=== PATIENT | female | born 1990 | race African-American/Black ===

== ENCOUNTER 2018-01-27 07:51 | Emergency (ER) | payer MEDICARE, OTHER ==
[2018-01-27 08:20] LABS: URINE HCG POC HCG NEGATIVE (Negative)
[2018-01-27] MEDS: IV NORMAL SALINE 1000ML BAG 1,000 ML IV ×2 (08:20→09:45)
[2018-01-27 08:22] LABS: BILIRUBIN,URINE SMALL (NEG); CLARITY,URINE CLEAR; COLOR,URINE YELLOW; GLUCOSE,URINE NEGATIVE (NEG); NITRITE,URINE NEGATIVE (NEG); PH,URINE 5.5; PROTEIN,URINE NEGATIVE (NEG-TRACE)
[2018-01-27] MEDS: ONDANSETRON PF 4 MG/2 ML VIAL. IV (08:22)
[2018-01-27 08:26] LABS: BACTERIA,URINE 0 /HPF (0-FEW); RBC,URINE RARE /HPF (0-2); SQUAMOUS EPITHELIAL CELL,UR MANY /LPF; WBC,URINE RARE /HPF (0-4)
[2018-01-27 08:34] LABS: ADD MAN DIFF? NO
[2018-01-27] MEDS: fentaNYL PF VIAL 100 MCG/2 ML VIAL IV (08:34)
[2018-01-27 08:36] LABS: BASO % 1 % (0-3); EOS % 1 % (0-3); HEMATOCRIT 42.9 % (36.0-47.0); HEMOGLOBIN 14.6 g/dL (12.0-15.5); LYMPH # 1.2 x10^3/uL (1.0-4.8); LYMPH % 43 % (24-48); MEAN CORPUSCULAR HEMOGLOBIN 30 pg (25-35); MEAN CORPUSCULAR HGB CONC 34 g/dL (31-37); MEAN CORPUSCULAR VOLUME 88 fL (79-100); MONO # 0.2 x10^3/uL (0.0-1.1); MONO % 7 % (0-9); NEUT # 1.3 x10^3uL (1.8-7.7); NEUT % 48 % (31-73); PLATELET COUNT 187 x10^3/uL (140-400); RED BLOOD COUNT 4.85 x10^6/uL (3.50-5.40); RED CELL DISTRIBUTION WIDTH 14.2 % (11.5-14.5); WHITE BLOOD COUNT 2.7 x10^3/uL (4.0-11.0)
[2018-01-27 08:48] LABS: ANION GAP 9 (6-14); BLOOD UREA NITROGEN 13 mg/dL (7-20); BUN/CREATININE RATIO 19 (6-20); CALCIUM 9.1 mg/dL (8.5-10.1); CARBON DIOXIDE 24 mmol/L (21-32); CHLORIDE 107 mmol/L (98-107); CREATININE 0.7 mg/dL (0.6-1.0); GFR 123.4; GLUCOSE 86 mg/dL (70-99); POTASSIUM 3.6 mmol/L (3.5-5.1); SODIUM 140 mmol/L (136-145)
[2018-01-27 08:58] LABS: ALBUMIN 3.7 g/dL (3.4-5.0); ALK PHOS 63 U/L (46-116); ALT (SGPT) 25 U/L (14-59); AST (SGOT) 21 U/L (15-37); LIPASE 89 U/L (73-393); TOTAL BILIRUBIN 0.6 mg/dL (0.2-1.0); TOTAL PROTEIN 7.3 g/dL (6.4-8.2)
[2018-01-27] MEDS: IOHEXOL 300 MG/ML 100ML VIAL. IV (09:35)
[2018-01-27] MEDS ORDERED: CONTRAST GIVEN MC (09:45)
== END 2018-01-27 10:50 | disposition home or self-care (01) ==
LOC: ER 07:51
DX: R10.32 Left lower quadrant pain (principal); N93.9 Abnormal uterine and vaginal bleeding, unspecified; F17.210 Nicotine dependence, cigarettes, uncomplicated; Z98.51 Tubal ligation status; Z98.890 Other specified postprocedural states; Z88.6 Allergy status to analgesic agent
CPT/HCPCS: 36415; 74177; 80053; 81001; 81025; 83690; 85025; 96361; 96374; 96375; 99285-25; J2405; J3010; J7030; Q9967

== ENCOUNTER 2019-09-19 19:20 | Emergency (ER) | payer MEDICAID, MEDICARE, OTHER ==
[~2019-09-19] VITALS: Ht 144.8 cm; Wt 54.4 kg
[2019-09-19 20:11] LABS: BILIRUBIN,URINE SMALL (NEG); CLARITY,URINE CLOUDY; NITRITE,URINE NEGATIVE (NEG); PH,URINE 5.5; PROTEIN,URINE 30 mg/dL (NEG-TRACE); UROBILINOGEN,URINE 0.2 mg/dL (0.2 mg/dL)
[2019-09-19 20:16] LABS: COLOR,URINE DK YELLOW
[2019-09-19 20:20] LABS: BACTERIA,URINE MODERATE /HPF (0-FEW); RBC,URINE 0 /HPF (0-2); SQUAMOUS EPITHELIAL CELL,UR MANY /LPF
[2019-09-19 20:21] VITALS: BP 121/79
[2019-09-19 20:44] LABS: BASO % 0 % (0-3); EOS % 0 % (0-3); HEMOGLOBIN 15.3 g/dL (12.0-15.5); LYMPH # 0.4 x10^3/uL (1.0-4.8); LYMPH % 5 % (24-48); MEAN CORPUSCULAR HEMOGLOBIN 29 pg (25-35); MEAN CORPUSCULAR HGB CONC 33 g/dL (31-37); MEAN CORPUSCULAR VOLUME 88 fL (79-100); MONO # 0.2 x10^3/uL (0.0-1.1); MONO % 3 % (0-9); NEUT # 6.9 x10^3/uL (1.8-7.7); NEUT % 92 % (31-73); PLATELET COUNT 206 x10^3/uL (140-400); RED BLOOD COUNT 5.23 x10^6/uL (3.50-5.40); RED CELL DISTRIBUTION WIDTH 14.2 % (11.5-14.5); WHITE BLOOD COUNT 7.5 x10^3/uL (4.0-11.0)
[2019-09-19 20:52] LABS: CALCIUM 9.2 mg/dL (8.5-10.1); CREATININE 0.7 mg/dL (0.6-1.0); GFR 121.5; POTASSIUM 3.9 mmol/L (3.5-5.1)
[2019-09-19 20:57] LABS: ALBUMIN 4.2 g/dL (3.4-5.0); ALBUMIN/GLOBULIN RATIO 0.9 (1.0-1.7); TOTAL BILIRUBIN 0.7 mg/dL (0.2-1.0); TOTAL PROTEIN 8.7 g/dL (6.4-8.2)
[2019-09-19 20:59] LABS: % EOS 1 % (0-5); % LYMPHS 5 % (24-48); % MONOS 3 % (0-10); % SEGS 91 % (35-66); PLT ESTIMATE ADEQUATE (ADEQUATE); TOXIC VACUOLATION SLIGHT
[2019-09-19 21:51] LABS: INFLUENZA A PATIENT NEGATIVE (NEGATIVE); INFLUENZA B PATIENT NEGATIVE (NEGATIVE)
--- NOTE | 2019-09-19 22:13 | PHYS DOC ---
Past Medical History Past Medical History: Other Additional Past Medical Histor: PREECLAMPSIA Past Surgical History: , Other Additional Past Surgical Histo: tubal ligation Alcohol Use: None Drug Use: None Adult General Chief Complaint Chief Complaint: ABDOMINAL PAIN HPI HPI 29-year-old female presents to the emergency Department complaints of nausea, vomiting, abdominal pain. She states is been ongoing for 5-6 hours. States it started this morning. She denies any fever. Patient describes generalized abdominal pain. The makes her symptoms worse, nothing makes her symptoms better. She states she is unable to keep anything down. Her vital signs however reveals she is afebrile, normal sinus rhythm, normotensive. Review of Systems Review of Systems Constitutional: Denies fever or chills [] HENT: Denies nasal congestion or sore throat [] Respiratory: Denies cough or shortness of breath [] Cardiovascular: No additional information not addressed in HPI [] GI: generalized abdominal pain, nausea, vomiting, no bloody stools or diarrhea [] : Denies dysuria or hematuria [] Musculoskeletal: Denies back pain or joint pain [] Neurologic: Denies headache, focal weakness or sensory changes [] All other systems were reviewed and found to be within normal limits, except as documented in this note. Current Medications Current Medications Current Medications Medications (Trade) Dose Ordered Sig/Man Start Time Stop Time Status Last Admin Dose Admin Dicyclomine HCl (Bentyl) 10 mg 1X ONCE 09/19/19 22:30 09/19/19 22:31 DC 09/19/19 22:52 10 MG Ondansetron HCl (Zofran) 4 mg 1X ONCE 09/19/19 22:30 09/19/19 22:31 DC 09/19/19 22:51 4 MG Sodium Chloride 1,000 ml @ 1,000 mls/hr 1X ONCE 09/19/19 22:30 09/19/19 23:29 09/19/19 22:43 1,000 MLS/HR Allergies Allergies Allergies Coded Allergies Type Severity Reaction Last Updated Verified aspirin Allergy Severe "throat swelling" 01/27/18 Yes Physical Exam Physical Exam Constitutional: Well developed, well nourished, no acute distress, non-toxic appearance. [] HENT: Normocephalic, atraumatic, bilateral external ears normal, oropharynx moist, no oral exudates, nose normal. [] Eyes: PERRLA, EOMI, conjunctiva normal, no discharge. [] Cardiovascular:Heart rate regular rhythm, no murmur [] Lungs & Thorax: Bilateral breath sounds clear to auscultation [] Abdomen: Bowel sounds normal, soft, no tenderness, no masses, no pulsatile masses. [] Skin: Warm, dry, no erythema, no rash. [] Back: No tenderness, no CVA tenderness. [] Extremities: No tenderness, no edema. [] Neurologic: Alert and oriented X 3, no focal deficits noted. [] Psychologic: Affect normal, judgement normal, mood normal. [] Current Patient Data Vital Signs Vital Signs Date Time Temp Pulse Resp B/P (MAP) Pulse Ox O2 Delivery O2 Flow Rate FiO2 09/19/19 20:21 98.2 91 20 121/79 (93) 98 Room Air 98.2 Lab Values Laboratory Tests Test 09/19/19 19:20 09/19/19 19:59 09/19/19 20:35 09/19/19 21:15 Urine Collection Type Void Urine Color Dk yellow Urine Clarity Cloudy Urine pH 5.5 Urine Specific [place] >=1.030 Urine Protein 30 mg/dL (NEG-TRACE) Urine Glucose (UA) Negative mg/dL (NEG) Urine Ketones (Stick) 40 mg/dL (NEG) Urine Blood Negative (NEG) Urine Nitrite Negative (NEG) Urine Bilirubin Small (NEG) Urine Urobilinogen Dipstick 0.2 mg/dL (0.2 mg/dL) Urine Leukocyte Esterase Negative (NEG) Urine RBC 0 /HPF (0-2) Urine WBC 1-4 /HPF (0-4) Urine Squamous Epithelial Cells Many /LPF Urine Bacteria Moderate /HPF (0-FEW) Urine Mucus Marked /LPF POC Urine HCG, Qualitative Hcg negative (Negative) White Blood Count 7.5 x10^3/uL (4.0-11.0) Red Blood Count 5.23 x10^6/uL (3.50-5.40) Hemoglobin 15.3 g/dL (12.0-15.5) Hematocrit 46.0 % (36.0-47.0) Mean Corpuscular Volume 88 fL (79-100) Mean Corpuscular Hemoglobin 29 pg (25-35) Mean Corpuscular Hemoglobin Concent 33 g/dL (31-37) Red Cell Distribution Width 14.2 % (11.5-14.5) Platelet Count 206 x10^3/uL (140-400) Neutrophils (%) (Auto) 92 % (31-73) H Lymphocytes (%) (Auto) 5 % (24-48) L Monocytes (%) (Auto) 3 % (0-9) Eosinophils (%) (Auto) 0 % (0-3) Basophils (%) (Auto) 0 % (0-3) Neutrophils # (Auto) 6.9 x10^3/uL (1.8-7.7) Lymphocytes # (Auto) 0.4 x10^3/uL (1.0-4.8) L Monocytes # (Auto) 0.2 x10^3/uL (0.0-1.1) Eosinophils # (Auto) 0.0 x10^3/uL (0.0-0.7) Basophils # (Auto) 0.0 x10^3/uL (0.0-0.2) Segmented Neutrophils % 91 % (35-66) H Lymphocytes % 5 % (24-48) L Monocytes % 3 % (0-10) Eosinophils % 1 % (0-5) Toxic Vacuolation Slight Platelet Estimate Adequate (ADEQUATE) Sodium Level 141 mmol/L (136-145) Potassium Level 3.9 mmol/L (3.5-5.1) Chloride Level 102 mmol/L (98-107) Carbon Dioxide Level 27 mmol/L (21-32) Anion Gap 12 (6-14) Blood Urea Nitrogen 15 mg/dL (7-20) Creatinine 0.7 mg/dL (0.6-1.0) Estimated GFR (Cockcroft-Gault) 121.5 BUN/Creatinine Ratio 21 (6-20) H Glucose Level 115 mg/dL (70-99) H Calcium Level 9.2 mg/dL (8.5-10.1) Total Bilirubin 0.7 mg/dL (0.2-1.0) Aspartate Amino Transferase (AST) 16 U/L (15-37) Alanine Aminotransferase (ALT) 15 U/L (14-59) Alkaline Phosphatase 75 U/L (46-116) Total Protein 8.7 g/dL (6.4-8.2) H Albumin 4.2 g/dL (3.4-5.0) Albumin/Globulin Ratio 0.9 (1.0-1.7) L Lipase 76 U/L (73-393) Influenza Type A Antigen Negative (NEGATIVE) Influenza Type B Antigen Negative (NEGATIVE) Laboratory Tests 09/19/19 20:35 Laboratory Tests 09/19/19 20:35 EKG EKG [] Radiology/Procedures Radiology/Procedures [] Course & Med Decision Making Course & Med Decision Making Pertinent Labs and Imaging studies reviewed. (See chart for details) []29-year-old female presents to the emergency Department complaints of nausea, vomiting, abdominal pain. She states is been ongoing for 5-6 hours. States it started this morning. She denies any fever. Patient describes generalized abdominal pain. The makes her symptoms worse, nothing makes her symptoms better. She states she is unable to keep anything down. Her vital signs however reveals she is afebrile, normal sinus rhythm, normotensive. Labs reviewed - no acute abnormalities appreciated UAD negative IVF - zofran/bentyl Plan for dc home with nausea meds/bentyl No evidence of acute infection at this time Dragon Disclaimer Dragon Disclaimer This electronic medical record was generated, in whole or in part, using a voice recognition dictation system. Departure Departure Impression: Primary Impression: Abdominal pain Additional Impressions: Nausea & vomiting Viral syndrome Disposition: 01 HOME, SELF-CARE Condition: IMPROVED Referrals: UNKNOWN PCP NAME (PCP) Patient Instructions: Abdominal Pain (Nonspecific), Viral Syndrome Additional Instructions: Recommend follow up with PCP 3 - 5 days Return to the ER with worsening symptoms, intractable pain, fever, altered mental status Tylenol/Motrin as needed for pain Take new medications as directed Scripts Dicyclomine Hcl (DICYCLOMINE HCL) 10 Mg Capsule 1 CAP PO TID for 5 Days, #15 CAP 11 Refills Prov: DORA MORENO MD 09/19/19 Ondansetron Hcl (ZOFRAN) 4 Mg Tablet 1 TAB PO PRN Q6-8HRS, #12 TAB Prov: DORA MORENO MD 09/19/19 Problem Qualifiers Primary Impression: Abdominal pain Abdominal location: generalized Qualified Codes: R10.84 - Generalized abdominal pain Additional Impressions: Nausea & vomiting Vomiting type: unspecified Vomiting Intractability: unspecified Qualified Codes: R11.2 - Nausea with vomiting, unspecified DORA MORENO MD Sep 19, 2019 22:13
[2019-09-19] MEDS ORDERED: ONDANSETRON PF 4 MG/2 ML VIAL. IV ONE (22:30)
[2019-09-19] MEDS ORDERED: DICYCLOMINE 20 MG/2 ML AMPUL. IM ONE (22:30)
[2019-09-19] MEDS ORDERED: IV NORMAL SALINE 1000ML BAG 1,000 ML IV ONE (22:30)
[2019-09-19] MEDS ORDERED: ONDA4TAB7 PO (23:35)
[2019-09-19] MEDS ORDERED: DICY10CA3 PO (23:35)
== END 2019-09-20 00:02 | disposition home or self-care (01) ==
LOC: ER 19:20
DX: R11.2 Nausea with vomiting, unspecified (principal); R10.84 Generalized abdominal pain; B34.9 Viral infection, unspecified; Z98.890 Other specified postprocedural states; Z98.51 Tubal ligation status; Z88.6 Allergy status to analgesic agent
CPT/HCPCS: 36415; 80053; 81001; 81025; 83690; 85007; 85025; 87086; 87804; 96361; 96372; 96374; 99284; J0500; J2405; J7030